=== PATIENT | male | born 1940 | race Caucasian/White ===

== ENCOUNTER 2017-07-21 07:05 | Outpatient (CLI) | payer OTHER | END 2017-07-21 07:11 | disposition home or self-care (01) | LOC: SONOGRAMA 07:05 | DX: E04.1 Nontoxic single thyroid nodule (principal) ==

== ENCOUNTER 2023-11-08 15:30 | Emergency (ER) | payer OTHER ==
[~2023-11-08] VITALS: Ht 182.9 cm; Wt 84.8 kg
[2023-11-08] MEDS ORDERED: ROCALTROL0.25 MCG PO (15:44)
[2023-11-08] MEDS ORDERED: RESTORIL7.5 MG PO (15:44)
[2023-11-08] MEDS ORDERED: MAXIMUM D3325 MCG PO (15:44)
[2023-11-08] MEDS ORDERED: NORVASC5 MG PO (15:44)
[2023-11-08] MEDS ORDERED: ALENDRONATE SODI5 MG (15:44)
[2023-11-08] MEDS ORDERED: AVAPRO75 MG PO (15:45)
[2023-11-08] MEDS ORDERED: CARDURA8 MG PO (15:46)
[2023-11-08] MEDS ORDERED: NASAL MIST126 ML (15:47)
[2023-11-08] MEDS ORDERED: TOPROL XL25 M1 PO (15:47)
[2023-11-08 17:13] LABS: HEMATOCRIT 41.3 % (39.0-48.0); HEMOGLOBIN 14.2 g/dL (13-16.00); MEAN CELL VOLUME 94.3 fL (80.0-100.00); MEAN CORPUSCULAR HEMOGLOBIN 32.3 pg (27.00-32.0); MEAN CORPUSCULAR HGB CONC 34.3 g/dl (32.0-36.0); PLATELET COUNT 211 K/uL (150-450); RED BLOOD COUNT 4.38 M/uL (4.00-6.00); RED CELL DISTRIBUTION WIDTH 13.9 % (11.5-14.5)
[2023-11-08 17:26] LABS: INR 1.01; PARTIAL THROMBOPLASTIN TIME 24.6 SECONDS (22.0-34.0); PROTHROMBIN TIME 10.6 SECONDS (9.0-11.5)
[2023-11-08 17:32] LABS: ALBUMIN 3.8 gm/dL (3.4-5.0); BILIRUBIN TOTAL 1.16 mg/dL (0.3-1.2); CALCIUM 9.3 mg/dL (8.5-10.1); CREATININE SERUM 1.78 mg/dL (0.70-1.30); GFR 36.77; GLOBULINA 3.7 G/DL (2.4-3.5); POTASSIUM 4.34 mEq/L (3.5-5.1); TOTAL PROTEIN 7.5 gm/dL (6.4-8.2)
== END 2023-11-08 19:45 | disposition home or self-care (01) ==
LOC: ER 15:31
PROVIDERS: General Practice
DX: U07.1 COVID-19 (principal); R53.1 Weakness; I10 Essential (primary) hypertension; E11.9 Type 2 diabetes mellitus without complications